=== PATIENT | male | born 1980 ===

== ENCOUNTER 2021-01-22 04:29 | Emergency (ER) | payer SELFPAY ==
[2021-01-22 09:09] VITALS: BP 124/71
[2021-01-22 13:51] LABS: Bacteria,Urine 1+ /HPF (Negative); Bilirubin,Urine NEG (Negative); Blood,Urine NEG (Negative); Color,Urine Amber (Yellow); Mucus,Urine 2+ /HPF
--- NOTE | 2021-01-22 20:14 | Emergency Department Report ---
ED Back Pain/Injury HPI - General Chief Complaint: Back Pain/Injury Stated Complaint: DRUG USE/BACK PAIN Source: patient Limitations: No Limitations - History of Present Illness Initial Comments: 40-year-old -[place] male presents to the emergency room complaining of lower back pain and pain with urination. Patient reports he recently used crack and heroin approximately 4 hours prior to arrival. Patient denies any trauma. Denies any fever chills no nausea no vomiting no abdominal pain. MD Complaint: back pain - Related Data Allergies Allergy/AdvReac Type Severity Reaction Status Date / Time No Known Allergies Allergy Verified 01/22/21 09:09 ED Review of Systems ROS: Stated complaint: DRUG USE/BACK PAIN Other details as noted in HPI Comment: All other systems reviewed and negative ED Physical Exam - General Limitations: No Limitations General appearance: alert, in no apparent distress - Head Head exam: Present: atraumatic, normocephalic - Eye Eye exam: Present: normal appearance - ENT ENT exam: Present: mucous membranes moist - Neck Neck exam: Present: normal inspection - Respiratory Respiratory exam: Present: normal lung sounds bilaterally. Absent: respiratory distress - Cardiovascular Cardiovascular Exam: Present: regular rate, normal rhythm. Absent: systolic murmur, diastolic murmur, rubs, gallop - GI/Abdominal GI/Abdominal exam: Present: soft, normal bowel sounds - Rectal Rectal exam: Present: deferred - Extremities Exam Extremities exam: Present: normal inspection - Back Exam Back exam: Present: normal inspection - Neurological Exam Neurological exam: Present: alert, oriented X3 - Psychiatric Psychiatric exam: Present: normal affect, normal mood - Skin Skin exam: Present: warm, dry, intact, normal color. Absent: rash ED Course Vital Signs 01/22/21 09:07 Temperature 99 F Pulse Rate 65 Respiratory 20 Rate Blood Pressure 124/71 [Left] O2 Sat by Pulse 95 Oximetry ED Medical Decision Making - Medical Decision Making 40-year-old -[place] male presents to the emergency room complaining of lower back pain and pain with urination. Patient reports he recently used crack and heroin approximately 4 hours prior to arrival. Patient denies any trauma. Denies any fever chills no nausea no vomiting no abdominal pain. No x-rays needed as patient has not had any trauma. Urinalysis is negative. I discussed with patient to take ibuprofen or Tylenol. Also discussed with patient to stop using crack and heroin. Increase your fluid intake advance your diet as tolerated Critical care attestation.: If time is entered above; I have spent that time in minutes in the direct care of this critically ill patient, excluding procedure time. ED Disposition Clinical Impression: Back pain, Current recreational drug use Disposition: HOME / SELF CARE / HOMELESS Is pt being admited?: No Does the pt Need Aspirin: No Condition: Stable Instructions: Acute Back Pain, Adult Additional Instructions: Recommend ibuprofen or Tylenol for pain increase your fluid intake advance your diet as tolerated. Stop using recreational drugs. Follow-up with a primary care provider Referrals: ARLEY AVILES MD [Primary Care Provider] - 3-5 Days BALDOMERO RICHEY MD [Staff Physician] - 3-5 Days Forms: Work/School Release Form(ED) Time of Disposition: 20:25
== END 2021-01-22 20:30 | disposition home or self-care (01) ==
LOC: ED 04:29
DX: M54.5 Low back pain (principal); F19.90 Other psychoactive substance use, unspecified, uncomplicated; Z91.89 Other specified personal risk factors, not elsewhere classified
CPT/HCPCS: 81001